=== PATIENT | male | born 2000 | race Caucasian/White ===

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

== ENCOUNTER 2021-06-20 17:53 | Emergency (ER) | payer MEDICAID, OTHER, SELFPAY ==
[~2021-06-20] VITALS: Ht 165.1 cm; Wt 91.4 kg
[2021-06-20 22:56] VITALS: BP 126/78
== END 2021-06-20 22:57 | disposition home or self-care (01) ==
LOC: M ED 17:53
DX: Z11.52 Encounter for screening for COVID-19 (principal); Z91.018 Allergy to other foods
CPT/HCPCS: 99283; U0003